=== PATIENT | female | born 1960 | race Caucasian/White ===

== ENCOUNTER → 2021-08-12 | Outpatient (CLI) | payer OTHER ==
[2021-08-12 16:28] LABS: HCT 39.2 % (34.0-46.0); HGB 13.3 gm/dL (11.4-16.0); MCH 31.5 pg (25.0-35.0); MCV 92.6 fL (80.0-100.0); Mean Platelet Volume 8.2; Platelet Count 236 k/uL (150-450); RBC 4.24 m/uL (3.80-5.40); RDW 12.8 % (11.5-15.5); WBC 9.4 k/uL (3.8-10.6)
[2021-08-12 16:35] LABS: Albumin 4.3 g/dL (3.5-5.0); Appearance,Urine Cloudy (Clear); Bacteria,Urine Moderate /hpf; Bilirubin,Urine Negative (Negative); Blood,Urine Negative (Negative); Calcium 11.2 mg/dL (8.4-10.2); Color,Urine Yellow; Glucose,Urine (UA) Negative (Negative); Ketones,Urine Negative (Negative); Leukocyte Esterase,Urine Moderate (Negative); Mucus,Urine Rare /hpf; Nitrite,Urine Negative (Negative); PH, Urine 6.5 (5.0-8.0); Potassium 4.4 mmol/L (3.5-5.1); Protein,Urine Negative (Negative); RBC,Urine 2 /hpf (0-5); Specific Gravity,Urine 1.018 (1.001-1.035); Squamous Epithelial Cell,Urine 1 /hpf (0-4); Total Bilirubin 0.6 mg/dL (0.2-1.3); Total Protein 6.8 g/dL (6.3-8.2); Urobilinogen,Urine <2.0 mg/dL (<2.0); WBC,Urine 37 /hpf (0-5)
[2021-08-12 16:36] LABS: INR 0.9 (<1.2); Partial Thromboplastin Time 23.4 sec (22.0-30.0); Prothrombin Time 9.9 sec (9.0-12.0)
== END | disposition home or self-care (01) ==
LOC: LABPAT 15:11
PROVIDERS: ATTEND Orthopaedic Surgery
DX: Z01.812 Encounter for preprocedural laboratory examination (principal); M17.12 Unilateral primary osteoarthritis, left knee
CPT/HCPCS: 80053; 81001; 85027; 85610; 85730; 87070

== ENCOUNTER 2021-08-23 10:51 | Observation (INO) | payer OTHER ==
[2021-08-19 15:06] VITALS: BMI 42.4
[~2021-08-23 10:51] MED LIST: ACETAMINOPHEN TAB 500 MG TAB PO PRN; MELOXICAM 7.5 MG TAB PO PRN; ONDANSETRON 4 MG/2 ML VIAL IVP PRN; ROPIVACAINE 246.25 MG, EPINEPHrine 0.5 MG, KETOROLAC 30 MG, cloNIDine HCL/PF 80 MCG, WA... MISCELLANE PRN; TRANEXAMIC ACID 1,000 MG in SODIUM CHLORIDE 0.9% 100 ML IVPB PRN
[2021-08-23] MEDS ORDERED: MIDAZOLAM 2 MG/2 ML VIAL IV PRN (11:06)
[2021-08-23] MEDS: LACTATED RINGERS 1,000 ML IV SCH ×2 (11:36→12:39)
[2021-08-23] MEDS ORDERED: DEXAMETHASONE SOD PHOSPHATE 4 MG/ML 1 ML VIAL IV ONE (11:46)
[2021-08-23] MEDS ORDERED: fentaNYL (PF) 50 MCG/ML 2 ML AMP IV ONE (11:55)
[2021-08-23] MEDS ORDERED: MIDAZOLAM 2 MG/2 ML VIAL IV ONE (11:55)
--- NOTE | 2021-08-23 12:30 | P.ANPRN ---
Procedure Note - Anesthesia - Nerve Block Performed Left Adductor Canal Infusion Time Out Performed: Yes ([id number]) Date of Procedure: 08/23/21 Procedure Start Time: 11:55 Procedure Stop Time: 12:00 Location of Patient: PreOp Indication: Acute Post-Operative Pain, Requested by Surgeon Specifically requested for management of pain by DrJake: Malachi Mendoza Sedation Type: Sedate with meaningful contact maintained Preparation: Sterile Prep, Sterile Dressing Position: Supine Catheter Depth at Skin (cm): 8 Catheter: Indwelling Needle Types: Pajunk Needle Gauge: 21 Ultrasound used to visualize needle placement: Yes Ultrasound used to observe medication spread: Yes Injectate: 0.5% Ropivacaine (see comment for volume) (15cc + nacl 5cc) Blood Aspirated: No Pain Paresthesia on Injection Noted: No Resistance on Injection: Normal Image Stored and Saved: Yes Events: Uneventful and Well Tolerated Left iPack Single Time Out Performed: Yes ([id number]) Date of Procedure: 08/23/21 Procedure Start Time: 12:01 Procedure Stop Time: 12:06 Location of Patient: PreOp Indication: Acute Post-Operative Pain, Requested by Surgeon Specifically requested for management of pain by DrJake: Malachi Mendoza Sedation Type: Sedate with meaningful contact maintained Preparation: Sterile Prep Position: Supine Catheter: None Needle Types: Pajunk Ultrasound used to visualize needle placement: Yes Ultrasound used to observe medication spread: Yes Injectate: 0.5% Ropivacaine (see comment for volume) (15cc + nacl 5cc pf) Blood Aspirated: No Pain Paresthesia on Injection Noted: No Resistance on Injection: Normal Image Stored and Saved: Yes Events: Uneventful and Well Tolerated
[2021-08-23] MEDS ORDERED: MIDAZOLAM 2 MG/2 ML VIAL ONE (12:38)
[2021-08-23] MEDS ORDERED: HYDROmorphone (PF) 1 MG/ML ONE (12:38)
[2021-08-23] MEDS ORDERED: fentaNYL (PF) 50 MCG/ML 2 ML AMP ONE (12:38)
[2021-08-23] MEDS ORDERED: PROPOFOL 10 MG/ML 20 ML VIAL IV ONE (12:38)
[2021-08-23] MEDS ORDERED: SUCCINYLCHOLINE CHLORIDE 100 MG/5 ML SYR IV ONE (12:38)
[2021-08-23] MEDS ORDERED: TRANEXAMIC ACID 1,000 MG/10 ML VIAL ONE (12:38)
[2021-08-23] MEDS ORDERED: LIDOCAINE 1% INJ 10MG/ML (20 ML MDV) ONE (12:38)
[2021-08-23] MEDS ORDERED: ROPIVACAINE 5 MG/ML 30 ML VIAL ONE (12:38)
[2021-08-23] MEDS ORDERED: KETAMINE 10 MG/ML 20 ML VIAL ONE (12:38)
[2021-08-23] MEDS ORDERED: SODIUM CHLORIDE 0.9% 100 ML BAG ONE (12:38)
[2021-08-23] MEDS ORDERED: ceFAZolin 3,000 MG in SODIUM CHLORIDE 0.9% IRRIGATIO 3,000 ML IRRIGATION ONE (12:43)
--- NOTE | 2021-08-23 14:28 | P.OP ---
Date of Procedure: 08/23/21 Procedure(s) Performed: PREOPERATIVE DIAGNOSIS: Left knee severe osteoarthritis with genu varum POSTOPERATIVE DIAGNOSIS: Left knee severe osteoarthritis with genu varum OPERATION: Left knee cemented total replacement arthroplasty. ANESTHESIA: Spinal ESTIMATED BLOOD LOSS: 50 ml. MORTGAGE OPERATIONS MANAGER: Loree Avila PA-C (assistance with: patient positioning, retraction, exposure, hemostasis, leg positioning, implantation, irrigation, closure, dressing) COMPLICATIONS: None apparent. COMPONENTS IMPLANTED: Persona system from [employer] INDICATIONS: Jessica is a 61 year old female with a history of left knee osteoarthritis. Conservative treatment has been tried and has been unsuccessful in controlling symptoms adequately. The operation of knee replacement has been discussed at length in the office, as well as potential risks and complications. These are inclusive of, but not limited to: bleeding, infection, scarring, discomfort, blood vessel and nerve damage, need for further surgery, failure to relieve symptoms, persistence, recurrence, or worsening of problems, loosening, dislocation, wear, blood clot, pulmonary embolism, , gait dysfunction, stiffness, and other risks as discussed in the office. The patient elects to proceed and the consent form has been signed. PROCEDURE: The patient was taken to the operating room and positioned on the operating room table in the supine position. Anesthesia was initiated. Care was taken to make sure that all pressure points were adequately padded. The operative lower extremity was prepped and draped in the usual aseptic fashion using ChloraPrep. Ioban drape was used for the case and the patient received intravenous antibiotics within one hour of the incision. A pneumotourniquet and leg rivera were used for the case. The limb was exsanguinated with an Esmarch bandage and the tourniquet was inflated to 350 mmHg. Time-out was called confirming the patient's identity, side, procedure and administration of antibiotics and tranexamic acid, 1 g IV. The incision was then created midline directly over the knee, carried down through skin and into the subcutaneous tissues and down to fascia. Full thickness subcutaneous medial flap was developed. Medial parapatellar arthrotomy was performed and the interior of the knee was inspected. There was end-stage osteoarthritis of the knee with a mild to moderate genu varum type deformity. The fat pad was excised and proximal medial release on the tibia was completed using meticulous dissection and a curved osteotome. The anterior cruciate ligament was taken down. Note was made of significant attrition of the anterior and significant degenerative appearance of the posterior cruciate ligaments. The exposure was excellent. The knee was flexed 90 degrees and the patella was everted. A spot was chosen on the femur approximately 1 cm anterior to the posterior cruciate ligament in sertion and an intramedullary hole was created within the femur. The intramedullary guide was then set to 5 degrees of valgus. The distal cutting block was attached and pinned into position. An appropriate amount of distal femoral resection was set. The oscillating saw was then used to make the distal femoral cut. This cut was confirmed to be flat with the flat end of an osteotome. The retractors were placed around the tibia and the tibial surface was addressed. The angle and depth of resection was adjusted using an extramedullary cutting guide. The guide had a built-in 3 degree posterior slope cut. Once the cutting guide was adjusted appropriately and in line with the axis of the tibia and confirmed to be in good position in relation to the second metatarsal and transmalleolar axis, the tibial cut was then created with protection of the posterior neurovascular structures and the collateral ligaments. The tibial cut surface was removed and sized. Femoral sizing was then accomplished using anterior referencing. Care was taken to analyze the posterior condyles for signs of deficiency or severe wear, and adjustments to the guide were made, as appropriate. 3 degree external rot ation pins were placed. The cutting jig for the femur was applied to these pins. The planned cuts were further analyzed prior to performing them with the oscillating saw. No femoral notching was produced. Bone fragments were removed and the cut surfaces were finished, as necessary, with a reciprocating saw. Spacer block technique was then used to confirm that the flexion and extension gaps were equal. Soft tissue releases and adjustment of the tibial and/or femoral cuts were made, as necessary, until the gaps were equal. This included release of the posterior cruciate ligament, which was tight in this patient. The femur was then further finished for a posterior cruciate ligament substituting component. Patellar resurfacing was performed using a reamer. The size of the required patellar component was estimated and the patellar surface was then reamed down to a residual thickness which would recreate the [place] thickness with the component. The exact placement of the patellar component was adjusted for position based on preoperative x-rays and intraoperative findings. The trial components were inserted. The tibial tray was allowed to self center and the patella was noted to track very well. The position of the tibial component was marked and the tibia was then finished for a stemmed tibial component. Cement was mixed on the back table and applied to the final componen ts. Trial components were removed and the cut surfaces of the bone were pulse lavaged thoroughly and dried. Cement was then applied to the tibial surface and pressurized into the surface using finger pressurization technique. The tibial component was then applied and excess cement was removed after it was impacted securely and noted to be flush with the cut surface. In similar fashion, the cement was applied to the cut femoral surface, pressurized in using finger pressurization and the component was impacted into place. Excess cement was removed. The polyethylene spacer was then implanted and locked into position. The patellar component was then applied in similar technique and a patellar clamp was used to hold the patella in place as the cement hardened. Once the cement had fully hardened, the knee was reinspected. Any other cement extrusion was removed and final kinematic testing showed range of motion from 0 to 130 degrees with excellent stability, both medially and laterally and appropriate alignment of the leg. Patellar tracking was excellent. The knee was then thoroughly pulse lavaged with normal saline. The tourniquet was deflated and hemostasis was obtained with electrocautery and IV tranexamic acid, 1 g given prior to inflation of the tourniquet and another gram given at the time of closure. Closure was with #2 Ethibond in the fascia and supplemented with #2 Quill, 2-0 Vicryl suture was used for the subcutaneous tissues and 3-0 Quill for the skin. Dermabond/Steri-Strips were then applied. A lightly compressive dressing was applied using Webril and an Manohar wrap. The patient was then transferred to stretcher and taken to the recovery room in stable condition. Sponge and needle counts were correct.
[2021-08-23] MEDS ORDERED: MAGNESIUM HYDROXIDE 2,400 MG/10 ML CUP PO PRN (14:57)
[2021-08-23] MEDS ORDERED: bisacodyL 10 MG SUPP RECTAL PRN (14:57)
[2021-08-23] MEDS ORDERED: TEMAZEPAM 15 MG CAP PO PRN (14:57)
[2021-08-23] MEDS ORDERED: NALOXONE 0.4 MG/ML 1 ML VIAL IV PRN (14:57)
[2021-08-23] MEDS ORDERED: NA PHOS,M-B/NA PHOS,DI-BA 133 ML ENEMA RECTAL PRN (14:57)
[2021-08-23] MEDS ORDERED: ONDANSETRON 4 MG/2 ML VIAL IVP PRN (14:57)
[2021-08-23] MEDS ORDERED: HYDROmorphone 0.2 MG/1 ML SYRINGE IVP PRN (14:57)
[2021-08-23] MEDS ORDERED: HYDROmorphone 0.5 MG/0.5 ML SYRINGE IVP PRN (14:57)
[2021-08-23] MEDS ORDERED: ROPIVACAINE 0.2%-NS ON-Q PUMP 1,090 MG, EMPTY PAIN BALL 1 EACH MISCELLANE PRN (14:58)
[2021-08-23] MEDS: HYDROmorphone 0.5 MG/0.5 ML SYRINGE IVP PRN ×3 (15:14→18:30)
--- NOTE | 2021-08-23 15:28 | XR ---
Left knee HISTORY: Postop knee arthroplasty 2 views of the left knee Patient is status post left knee arthroplasty. There is anatomic alignment. Lucencies present in the soft tissues consistent with postop state. IMPRESSION: Orthopedic follow-up.
[2021-08-23] MEDS: ASPIRIN 81 MG PO SCH (21:49)
[2021-08-23] MEDS: SENNOSIDES-DOCUSATE SODIUM 1 EACH TAB PO SCH (21:49)
[2021-08-23] MEDS: HYDROmorphone 1 MG/ML 1 ML SYRINGE IVP PRN (21:49)
[2021-08-23] MEDS: HYDROcodone/APAP 7.5-325MG 1 EACH TAB PO PRN (23:45)
[2021-08-24] MEDS: LACTATED RINGERS 1,000 ML IV SCH ×3 (02:36→17:15)
[2021-08-24] MEDS: HYDROcodone/APAP 7.5-325MG 1 EACH TAB PO PRN ×4 (05:39→22:58)
[2021-08-24] MEDS: ASPIRIN 81 MG PO SCH ×2 (07:18→22:43)
--- NOTE | 2021-08-24 08:06 | P.DS ---
Providers Date of admission: 08/24/21 03:05 Expected date of discharge: 08/24/21 Attending physician: Malachi Mendoza Consults: 08/23/21 14:57 Consult Physician Routine Consulting Provider: Dorene Cornelius Consult Reason/Comments: Medical management Do you want consulting provider notified?: Yes Primary care physician: Matt Larsenler - Discharge Diagnosis(es) (1) Osteoarthritis of left knee Current Visit: Yes Status: Acute (2) S/P total knee arthroplasty Current Visit: Yes Status: Acute Hospital Course: This is a 61-year-old female with known history of degenerative arthritis of the left knee. The patient presented for evaluation as an outpatient. After discussion and consideration patient elects to proceed with total knee arthroplasty. The patient is seen preoperatively by Dr. Mendoza and medically cleared for surgery by their primary care physician. Patient is admitted to [facility] on 08/23/2021 for total knee arthroplasty. The procedure is performed without complication or sequelae. The patient is doing well postoperatively. Labs and vital signs are stable on day of discharge. On day of discharge patient's knee incision is healing well. There is minimal erythema. There is no drainage noted at this time. There is minimal soft tissue swelling to the knee. Patient has full foot and ankle motion without difficulty or pain. Calf is soft and nontender to palpation. Neurovascular sta tus to the left lower extremity is intact. Patient is discharged home in good condition. Please see [facility] rec for accurate list of home medications. Plan - Discharge Summary Discharge Rx Participant: Yes New Discharge Prescriptions: New Aspirin [Adult Low Dose Aspirin EC] 81 mg PO BID #1 tab Gabapentin [Neurontin] 300 mg PO BID 5 Days #10 cap Ondansetron Odt [Zofran Odt] 4 mg PO Q8HR PRN #14 tab PRN Reason: Nausea Meloxicam [Mobic] 1 - 2 tab PO DAILY PRN #60 tab PRN Reason: Pain HYDROcodone/APAP 7.5-325MG [[place] 7.5-325] 1 - 2 tab PO Q6HR PRN #32 tab PRN Reason: Pain Sennosides-Docusate Sodium [Senokot-S] 1 tab PO BID #60 tablet No Action Triamterene/Hydrochlorothiazid [Dyazide 37.5-25 Capsule] 1 cap PO DAILY Metoprolol Succinate [Toprol XL] 50 mg PO DAILY Hydrochlorothiazide [hydroCHLOROthiazide] 12.5 mg PO DAILY Acetaminophen [Tylenol Extra Strength] 500 mg PO Q4H PRN PRN Reason: Pain Zinc 50 mg PO DAILY Calcium Carbonate [Calcium] 600 mg PO DAILY Multivitamins, Thera [Multivitamin (formulary)] 1 tab PO DAILY Ascorbic Acid [Vitamin C] 1,000 mg PO DAILY Cholecalciferol [Vitamin D3 (25 Mcg = 1000 Iu)] 25 mcg PO DAILY Ezetimibe [Zetia] 10 mg PO DAILY Atorvastatin [Lipitor] 40 mg PO DAILY Potassium Chloride [Potassium Chloride ER] 16 meq PO BID Olmesartan [Benicar] 20 mg PO DAILY Celecoxib [CeleBREX] 200 mg PO DAILY Aspirin 81 mg PO DAILY Cetirizine HCl [Zyrtec] 10 mg PO DAILY Vitamin B Complex 1 each PO DAILY Discharge Medication List Acetaminophen [Tylenol Extra Strength] 500 mg PO Q4H PRN 08/20/21 [History] Ascorbic Acid [Vitamin C] 1,000 mg PO DAILY 08/20/21 [History] Aspirin 81 mg PO DAILY 08/20/21 [History] Atorvastatin [Lipitor] 40 mg PO DAILY 08/20/21 [History] Calcium Carbonate [Calcium] 600 mg PO DAILY 08/20/21 [History] Celecoxib [CeleBREX] 200 mg PO DAILY 08/20/21 [History] Cetirizine HCl [Zyrtec] 10 mg PO DAILY 08/20/21 [History] Cholecalciferol [Vitamin D3 (25 Mcg = 1000 Iu)] 25 mcg PO DAILY 08/20/21 [History] Ezetimibe [Zetia] 10 mg PO DAILY 08/20/21 [History] Hydrochlorothiazide [hydroCHLOROthiazide] 12.5 mg PO DAILY 08/20/21 [History] Metoprolol Succinate [Toprol XL] 50 mg PO DAILY 08/20/21 [History] Multivitamins, Thera [Multivitamin (formulary)] 1 tab PO DAILY 08/20/21 [History] Olmesartan [Benicar] 20 mg PO DAILY 08/20/21 [History] Potassium Chloride [Potassium Chloride ER] 16 meq PO BID 08/20/21 [History] Triamterene/Hydrochlorothiazid [Dyazide 37.5-25 Capsule] 1 cap PO DAILY 08/20/21 [History] Vitamin B Complex 1 each PO DAILY 08/20/21 [History] Zinc 50 mg PO DAILY 08/20/21 [History] Aspirin [Adult Low Dose Aspirin EC] 81 mg PO BID #1 tab 08/23/21 [Rx] Gabapentin [Neurontin] 300 mg PO BID 5 Days #10 cap 08/23/21 [Rx] HYDROcodone/APAP 7.5-325MG [[place] 7.5-325] 1 - 2 tab PO Q6HR PRN #32 tab 08/23/21 [Rx] Meloxicam [Mobic] 1 - 2 tab PO DAILY PRN #60 tab 08/23/21 [Rx] Ondansetron Odt [Zofran Odt] 4 mg PO Q8HR PRN #14 tab 08/23/21 [Rx] Sennosides-Docusate Sodium [Senokot-S] 1 tab PO BID #60 tablet 08/23/21 [Rx] Follow up Appointment(s)/Referral(s): Loree Avila, PAC [PHYSICIAN COLD ROLL CATCHER] - 2 Weeks Activity/Diet/Wound Care/Special Instructions: May bear wt as tolerated w walker. May shower 48h post op. Keep optifoam dressing intact 7-10 days. Discharge Disposition: HOME WITH HOME HEALTH SERVICES
--- NOTE | 2021-08-24 08:21 | P.PN ---
Progress Note - Text Progress Note Date: 08/24/21 Patient was seen and evaluated at bedside. Patient was sitting comfortably in her bed. Status post postoperative day 1 for left total knee arthroplasty patient had adductor canal catheter for postop pain control. Patient rated pain at rest 4 -5out of 10 in severity. Patient describes pain is aching, throbbing type on the sides of the knee and back of the knee. With activity patient rated pain levels 6-7 block out of 10 in severity. With the help of ora l pain medications patient pain levels are tolerable. Patient denied any weakness/ numbness in his lower extremities. patient denied any fever, pain over the catheter site. Physical exam: Patient vital signs stable Patient is alert awake oriented 3 responding to all questions appropriately Examination of the catheter site showed dressing intact, no leaking fluid around the catheter, no redness, no tenderness over. The catheter insertion area. plan: status post postoperative day 1 for left total knee arthroplasty with adductor canal catheter for pain control. Patient was discussed to continue the medication at the rate of 8 mL per hour until the pump is completely empty, and instructed the patient how to discontinue the catheter.
[2021-08-24] MEDS ORDERED: MELOXICAM 7.5 MG TAB PO SCH (09:00)
[2021-08-24 11:36] LABS: Basophils # (A) 0.04 X 10*3/uL (0.00-0.10); Basophils % (A) 0.3 %; Eosinophils # (A) 0.02 X 10*3/uL (0.04-0.35); Eosinophils % (A) 0.2 %; HCT 35.3 % (37.2-46.3); HGB 11.4 g/dL (12.0-15.0); Lymphocytes # (A) 2.44 X 10*3/uL (0.90-5.00); MCHC 32.3 g/dL (32.0-37.0); MCV 92.9 fL (80.0-97.0); Mean Platelet Volume 11.5 fL (9.5-12.2); Monocytes # (A) 1.31 X 10*3/uL (0.20-1.00); Monocytes % (A) 10.2 %; Neutrophils # (A) 8.94 X 10*3/uL (1.80-7.70); Neutrophils % (A) 69.8 %; Platelet Count 212 X 10*3/uL (140-440); RDW 12.8 % (11.5-14.5); WBC 12.81 X 10*3/uL (4.50-10.00)
[2021-08-24] MEDS ORDERED: KETOROLAC 15 MG/ML 1 ML VIAL IVP PRN (13:18)
[2021-08-24] MEDS: HYDROmorphone 1 MG/ML 1 ML SYRINGE IVP PRN (13:57)
--- NOTE | 2021-08-24 17:31 | P.CONS ---
History of Present Illness - Reason for Consult Consult date: 08/24/21 - History of Present Illness The patient is a 61-year-old female with a PMH of hyperlipidemia and hypertension who was admitted for an elective left total knee replacement. The patient underwent the procedure uneventfully on 08/23. He was seen at the bedside today and noted continued left knee pain, currently at a 5 out of 10, and 10 out of 10 with movement. She denied any additional complaints. Reports compliance with her medications at home. She denied chest discomfort, shortness of breath, fever, chills, cough, nausea, vomiting, abdominal pain. Review of systems: Pertinent positives and negatives as discussed in HPI, a complete review of systems was performed and all other systems are negative. Physical examination: General: non toxic, no distress, appears at stated age, morbidly obese Derm: no unusual rashes/lesions no unusual ecchymoses, warm, dry Head: atraumatic, normocephalic, symmetric Eyes: EOMI, no lid lag, anicteric sclera, pupils equal round reactive to light ENT: Nose and ears atraumatic, no thrush, no pharyngeal erythema Neck: No thyromegaly, no cervical lymphadenopathy, trachea midline, supple Mouth: no lip lesion, mucus membranes moist Cardiovascular: S1S2 reg, no murmur, positive posterior tibial pulse bilateral, no edema, capillary refill less than 2 seconds Lungs: CTA bilateral, no rhonchi, no rales , no accessory muscle use Abdominal: soft, nontender to palpation, no guarding, no appreciable organomegaly, normal bowel sounds Ext: no gross muscle atrophy, muscle strength 5 out of 5 in all 4 extremities grossly except left lower extremity postoperatively, no contractures, left knee Manohar bandage in place Neuro: CN II-XI grossly intact, light touch intact all 4 extremities, finger to nose within normal limits, Psych: Alert, oriented, appropriate affect Assessment/plan Chronic conditions: Hyperlipidemia, hypertension -Continue with home meds Status post left total knee replacement -Defer management including pain control to the surgery service Leukocytosis -Likely due to acute stressor -No sign of active infection at this time -Monitor for now Past Medical History Past Medical History: Hyperlipidemia, Hypertension, Osteoarthritis (OA) Additional Past Medical History / Comment(s): PLANTAR FASCIITIS History of Any Multi-Drug Resistant Organisms: None Reported Past Surgical History: Section, Heart Catheterization Additional Past Surgical History / Comment(s): C SECTION X3 , SURGERY FOR PLANTAR FASCIITIS , D&C X3 Past Anesthesia/Blood Transfusion Reactions: No Reported Reaction Past Psychological History: No Psychological Hx Reported Smoking Status: Never smoker Past Alcohol Use History: Occasional Past Drug Use History: None Reported - Past Family History Mother Family Medical History: No Reported History Brother(s) Family Medical History: Cancer Medications and Allergies Home Medications Medication Instructions Recorded Confirmed Type Acetaminophen [Tylenol Extra 500 mg PO Q4H PRN 08/20/21 08/23/21 History Strength] Ascorbic Acid [Vitamin C] 1,000 mg PO DAILY 08/20/21 08/20/21 History Aspirin 81 mg PO DAILY 08/20/21 08/20/21 History Atorvastatin [Lipitor] 40 mg PO DAILY 08/20/21 08/23/21 History Calcium Carbonate [Calcium] 600 mg PO DAILY 08/20/21 08/20/21 History Celecoxib [CeleBREX] 200 mg PO DAILY 08/20/21 08/20/21 History Cetirizine HCl [Zyrtec] 10 mg PO DAILY 08/20/21 08/23/21 History Cholecalciferol [Vitamin D3 (25 25 mcg PO DAILY 08/20/21 08/20/21 History Mcg = 1000 Iu)] Ezetimibe [Zetia] 10 mg PO DAILY 08/20/21 08/23/21 History Hydrochlorothiazide 12.5 mg PO DAILY 08/20/21 08/23/21 History [hydroCHLOROthiazide] Metoprolol Succinate [Toprol XL] 50 mg PO DAILY 08/20/21 08/23/21 History Multivitamins, Thera [Multivitamin 1 tab PO DAILY 08/20/21 08/20/21 History (formulary)] Olmesartan [Benicar] 20 mg PO DAILY 08/20/21 08/23/21 History Potassium Chloride [Potassium 16 meq PO BID 08/20/21 08/23/21 History Chloride ER] Triamterene/Hydrochlorothiazid 1 cap PO DAILY 08/20/21 08/23/21 History [Dyazide 37.5-25 Capsule] Vitamin B Complex 1 each PO DAILY 08/20/21 08/20/21 History Zinc 50 mg PO DAILY 08/20/21 08/20/21 History Aspirin [Adult Low Dose Aspirin EC] 81 mg PO BID #1 tab 08/23/21 Rx Gabapentin [Neurontin] 300 mg PO BID 5 Days #10 cap 08/23/21 Rx HYDROcodone/APAP 7.5-325MG [[place] 1 - 2 tab PO Q6HR PRN #32 tab 08/23/21 Rx 7.5-325] Meloxicam [Mobic] 1 - 2 tab PO DAILY PRN #60 tab 08/23/21 Rx Ondansetron Odt [Zofran Odt] 4 mg PO Q8HR PRN #14 tab 08/23/21 Rx Sennosides-Docusate Sodium 1 tab PO BID #60 tablet 08/23/21 Rx [Senokot-S] Allergies Allergy/AdvReac Type Severity Reaction Status Date / Time No Known Allergies Allergy Verified 08/23/21 11:11 Physical Exam Vitals: Vital Signs Temp Pulse Resp BP Pulse Ox 08/24/21 08:00 97.5 F L 76 16 108/76 97 08/24/21 02:00 98.4 F 75 16 119/55 97 08/23/21 20:31 98.4 F 73 17 128/67 93 L 08/23/21 18:45 74 16 115/56 95 08/23/21 18:15 76 16 136/62 97 08/23/21 17:45 72 16 1287/59 94 L Intake and Output 08/24/21 08/24/21 08/24/21 06:59 14:59 22:59 Intake Total 360 Balance 360 Intake: Oral 360 Other: # Voids 2 4 Weight 111.9 kg Results CBC & Chem 7: 08/24/21 06:45 Labs: Abnormal Lab Results - Last 24 Hours (Table) 08/24/21 Range/Units 06:45 WBC 12.81 H (4.50-10.00) X 10*3/uL RBC 3.80 L (4.10-5.20) X 10*6/uL Hgb 11.4 L (12.0-15.0) g/dL Hct 35.3 L (37.2-46.3) % Immature Gran # 0.06 H (0.00-0.04) X 10*3/uL Neutrophils # 8.94 H (1.80-7.70) X 10*3/uL Monocytes # 1.31 H (0.20-1.00) X 10*3/uL Eosinophils # 0.02 L (0.04-0.35) X 10*3/uL
[2021-08-24] MEDS: SENNOSIDES-DOCUSATE SODIUM 1 EACH TAB PO SCH (22:43)
[2021-08-25 02:36] VITALS: TEMP 98.5
[2021-08-25] MEDS: HYDROcodone/APAP 7.5-325MG 1 EACH TAB PO PRN (05:51)
[2021-08-25 07:12] VITALS: BP 115/51; PULSE 80; RESP 17
--- NOTE | 2021-08-25 07:42 | P.PN ---
Progress Note - Text Progress Note Date: 08/25/21 This is an addendum to discharge summary. Patient's discharge was held yesterday secondary to pain management issues. Patient is doing much better today. Dressing is clean, dry and intact. She has full foot and ankle motion bilaterally. Neurovascular status to the lower extremities is intact. She would like to be discharged to home today. Please see previous discharge summary and med rec for accurate list of home medications.
[2021-08-25] MEDS: ASPIRIN 81 MG PO SCH (08:57)
== END 2021-08-25 11:53 | disposition home health service (06) ==
LOC: OR 10:51 → 4SSUR 20:02 → OR 08-24 02:56 → 4SSUR 08-24 03:05
PROVIDERS: ADMIT Orthopaedic Surgery; ATTEND Orthopaedic Surgery
DX: M17.12 Unilateral primary osteoarthritis, left knee (principal); M21.162 Varus deformity, not elsewhere classified, left knee; I10 Essential (primary) hypertension; E78.5 Hyperlipidemia, unspecified; M72.2 Plantar fascial fibromatosis; D72.829 Elevated white blood cell count, unspecified; E66.01 Morbid (severe) obesity due to excess calories; Z68.41 Body mass index [BMI] 40.0-44.9, adult; Z79.1 Long term (current) use of non-steroidal anti-inflammatories (NSAID); Z79.82 Long term (current) use of aspirin; Z79.899 Other long term (current) drug therapy; Z98.891 History of uterine scar from previous surgery; Z97.3 Presence of spectacles and contact lenses; Z83.3 Family history of diabetes mellitus; Z82.49 Family history of ischemic heart disease and other diseases of the circulatory system; Z80.9 Family history of malignant neoplasm, unspecified
CPT/HCPCS: 97116; 97161; 64999; 64448; 76942; 85025; 88300; 87635; 73560; 27447; G0378 ×2; C1713; C1776; J2250; J1100; J0690 ×3; J2405; J2001; J3010; J1170 ×4; J2795 ×2; J1885; J0330; J2704

== ENCOUNTER → 2022-11-12 | Outpatient (CLI) | payer OTHER ==
[2022-11-12 10:51] LABS: INR 0.9 (<1.2); Partial Thromboplastin Time 25.4 sec (22.0-30.0); Prothrombin Time 9.8 sec (9.0-12.0)
[2022-11-12 16:42] LABS: HCT 43.1 % (37.2-46.3); HGB 13.5 g/dL (12.0-15.0); MCHC 31.3 g/dL (32.0-37.0); MCV 92.5 fL (80.0-97.0); Mean Platelet Volume 11.2 fL (9.5-12.2); NRBC Per 100 WBC 0 /100 WBCS (0.0-0.0); Platelet Count 234 X 10*3/uL (140-440); RBC 4.66 X 10*6/uL (4.10-5.20); RDW 12.7 % (11.5-14.5); WBC 7.71 X 10*3/uL (4.50-10.00)
[2022-11-12 16:55] LABS: African American GFR (CKD) 91.6 (60.0-200.0); Albumin 4.5 g/dL (3.8-4.9); Albumin/Globulin Ratio 2.14 (1.60-3.17); Anion Gap 10.6 mmol/L (10.00-18.00); BUN/Creat Ratio 30.13 Ratio (12.00-20.00); Blood Urea Nitrogen 24.1 mg/dL (9.0-27.0); Carbon Dioxide 24.4 mmol/L (20.0-27.5); Globulin 2.1 g/dL (1.6-3.3); Potassium 4.9 mmol/L (3.5-5.5); Total Bilirubin 0.4 mg/dL (0.30-1.20); Total Protein 6.6 g/dL (6.2-8.2)
[2022-11-12 17:29] LABS: Appearance,Urine Clear (Clear); Bilirubin,Urine Negative (Negative); Blood,Urine Negative (Negative); Color,Urine Yellow (Yellow); Ketones,Urine Negative (Negative); Nitrite,Urine Negative (Negative); Urobilinogen,Urine 0.2 (0.2,1.0)
== END | disposition home or self-care (01) ==
LOC: LABWHC1 09:22
PROVIDERS: ATTEND Orthopaedic Surgery
DX: Z01.812 Encounter for preprocedural laboratory examination (principal)
CPT/HCPCS: 36415; 80053; 81003; 85027; 85610; 85730; 87070; 93005